=== PATIENT | female | born 1945 | race Caucasian/White ===

== ENCOUNTER 2016-04-25 14:32 | Outpatient (CLI) ==
[2016-04-25 14:57] LABS: HEMATOCRIT 38.8 % (37.0-47.0); HEMOGLOBIN 12.6 g/dl (12.0-16.0); MEAN CORPUSCULAR HEMOGLOBIN 31.3 pg (27.0-31.0); MEAN CORPUSCULAR HGB CONC 32.5 (31.8-35.4); MEAN CORPUSCULAR VOLUME 96.3 fl (81.0-99.0); RED BLOOD COUNT 4.03 10^6/ul (4.20-5.40); WHITE BLOOD COUNT 8.41 K/ul (4.6-10.2)
[2016-04-25 15:04] LABS: BILIRUBIN,URINE Negative (NEGATIVE); KETONES,URINE Negative (NEGATIVE); LEUKOCYTE ESTERASE ,URINE Negative (NEGATIVE); NITRITE,URINE Negative (NEGATIVE); PROTEIN,URINE Negative (NEGATIVE); URINE, BLOOD Negative (NEGATIVE)
[2016-04-25 15:13] LABS: ADD URINE MICROSCOPIC NO
[2016-04-25 15:57] LABS: ANION GAP 12.9; BUN/CREATININE RATIO 20.65; CALCIUM 9.9 mg/dL (8.2-10.2); CREATININE 0.92 mg/dL (0.60-1.30); MAGNESIUM 2.2 mg/dL (1.7-2.2); PHOSPHORUS 4.4 mg/dL (2.8-4.1); POTASSIUM 4.9 mmol/L (3.5-5.10); URIC ACID 6.1 mg/dL (2.4-6.0)
[2016-04-26 09:38] LABS: URINE CREATINE 113.5 mg/dL (Not Estab.)
== END 2016-04-25 14:33 | disposition home or self-care (01) ==
LOC: LAB 14:32
PROVIDERS: ATTEND Internal Medicine Nephrology
DX: N18.2 Chronic kidney disease, stage 2 (mild) (principal); E55.9 Vitamin D deficiency, unspecified; I10 Essential (primary) hypertension
CPT/HCPCS: 36415; 80069; 81001; 82306; 82570; 83735; 83970; 84156; 84550; 85027

== ENCOUNTER 2016-06-14 09:18 | Outpatient (CLI) ==
--- NOTE | 2016-06-15 08:09 | MAMMO ---
EXAM: Digital screening mammogram HISTORY: Screening mammogram COMPARISON: Mammogram 04/27/2015 and 04/14/2014 FINDINGS: Bilateral CC and MLO views of the breasts were performed digitally and demonstrate scatte red fibroglandular breast density (25 - 50%). Calcification in the central right breast is unchanged . Vascular calcifications are present. There is no abnormal nodule or calcification. There is no significant interval change. IMPRESSION: No new or suspicious calcification or nodule RECOMMENDATION: Annual screening mammogram BIRADS category II: Benign findings
== END 2016-06-14 09:19 | disposition home or self-care (01) ==
LOC: RAD 09:18
PROVIDERS: ATTEND Family Medicine
DX: Z12.31 Encounter for screening mammogram for malignant neoplasm of breast (principal)

== ENCOUNTER 2017-06-19 10:17 | Outpatient (CLI) ==
--- NOTE | 2017-06-19 11:52 | MAMMO ---
EXAM: Digital screening mammogram. Tomosynthesis was performed. HISTORY: Screening COMPARISON: 06/14/2016 FINDINGS: Digital MLO and CC views of the right and left breast were performed. Tomosynthesis was performed. Computer aided detection utilized. There are scattered fibroglandular densities. Benign and vascular bilateral calcifications. There is no evidence for mass, asymmetry, distortion, or anabell picious calcifications in either breast. IMPRESSION: 1. No evidence of malignancy in the right or left breast. 2. Annual screening mammogram is recommended in one year. BIRADS category 2, benign
== END 2017-06-19 10:18 | disposition home or self-care (01) ==
LOC: RAD 10:17
PROVIDERS: ATTEND Family Medicine
DX: Z12.31 Encounter for screening mammogram for malignant neoplasm of breast (principal)
CPT/HCPCS: 77067

== ENCOUNTER 2018-05-07 15:02 | Outpatient (CLI) ==
--- NOTE | 2018-05-07 15:57 | DI ---
EXAM: Chest two views HISTORY: Cough COMPARISON: None TECHNIQUE: Two views of the chest were performed FINDINGS: No airspace consolidation. Granulomatous calcification. There is no pleural effusion or pneumothorax. The heart is normal in size. The mediastinal contour is normal , noting atheroscleros is. There are no acute abnormalities of the bones. IMPRESSION: No acute cardiopulmonary process.
== END 2018-05-07 15:03 | disposition home or self-care (01) ==
LOC: RAD 15:02
PROVIDERS: ATTEND Family Medicine
DX: R05 Cough (principal)

== ENCOUNTER 2018-06-19 09:35 | Outpatient (CLI) | payer OTHER ==
--- NOTE | 2018-06-20 10:01 | MAMMO ---
EXAM: Digital screening mammogram with tomosynthesis HISTORY: Screening COMPARISON: 06/19/2017 FINDINGS: Digital MLO and CC views of the right and left breast were performed. Tomosynthesis was performed. Computer aided detection utilized. There are scattered fibroglandular densities. Benign bilateral calcifications. There is no evidence for mass, asymmetry, distortion, or suspicious calci fications in either breast. IMPRESSION: 1. No evidence of malignancy in the right or left breast. 2. Annual screening mammogram is recommended in one year. BIRADS category 2, benign
== END 2018-06-19 09:36 | disposition home or self-care (01) ==
LOC: RAD 09:35
PROVIDERS: ATTEND Family Medicine
DX: Z12.31 Encounter for screening mammogram for malignant neoplasm of breast (principal)